=== PATIENT | female | born 1970 | race Caucasian/White ===

== ENCOUNTER 2018-04-01 16:36 | Emergency (ER) | payer MEDICAID, SELFPAY ==
[2018-04-01 16:52] VITALS: BP 130/89; PULSE 100; RESP 18; TEMP 36.6; O2SAT 98
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
[2018-04-01 17:47] LABS: Abs Immature Grans 0.01 k/cumm (0.0-0.09); Absolute Basophil Count 0.01 k/cumm (0.0-0.2); Absolute Lymphocyte Count 1.71 k/cumm (1.2-3.4); Absolute Monocyte Count 0.46 k/cumm (0.11-0.7); Absolute Neutrophil Count 4.03 k/cumm (1.2-6.7); Basophils % 0.2; HCT 38.1 % (36.0-46.0); HGB 13.2 g/dL (12.0-15.5); Immature Grans % 0.2; Lymphocytes % 27.5; Mean Corp. HGB Concentration 34.6 g/dL (32.0-36.0); Mean Corpuscular Hemoglobin 29.9 pg (27.0-33.0); Mean Corpuscular Volume 86.4 fL (80-95); Mean Platelet Volume 9.8 fL (8.0-11.0); Monocytes % 7.4; Neutrophils % 64.7; Platelet Count 314 x1000/uL (130-400); RBC 4.41 m/cumm (4.00-5.20); RBC Distribution Width 13.4 % (11.7-14.6); White Blood Cell Count 6.22 k/cumm (4.4-10.8)
[2018-04-01 18:08] LABS: ALT 19 U/L (12-78); AST 11 U/L (15-37); Alkaline Phosphatase 79 U/L (46-116); Anion Gap 9.9 mmol/L (3-11); BUN 6 mg/dL (7-18); Bilirubin, Total 0.3 mg/dL (0.2-1.0); CO2 25.1 mmol/L (21.0-32.0); CREATININE 0.43 mg/dL (0.55-1.02); Calcium 8.6 mg/dL (8.5-10.1); Chloride 106 mmol/L (98-107); Glucose 101 mg/dL (70-100); Potassium 3.3 mmol/L (3.5-5.1); Sodium 141 mmol/L (136-145); TSH 0.41 uIU/mL (0.358-3.74); Total Protein 7.2 g/dL (6.4-8.2)
[2018-04-01 18:10] LABS: ETHANOL BLOOD < 3.0 mg/dL (<3)
[2018-04-01 18:22] LABS: Salicylate 5.5 mg/dL (2.8-20.0)
[2018-04-01 18:25] LABS: Acetaminophen < 2 ug/mL (10-30)
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
[2018-04-01 19:20] LABS: Bilirubin Negative (Negative); Blood Moderate (Negative); Clarity Cloudy; Glucose Negative (Negative); Ketones Trace mg/dL (Negative); Leukocyte Esterase Trace (Negative); Nitrite Negative (Negative); Specific Gravity 1.015 (1.005-1.025); Urobilinogen 0.2 EU/dL (Up TO 0.2)
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
[2018-04-01 19:35] LABS: *AMPHETAMINES SCREEN URINE Negative (Negative); *BARBITURATES SCREEN URINE Negative (Negative); *BENZODIAZEPINES SCREEN URINE Negative (Negative); Cannabinoids THC Negative (Negative); Cocaine Screen,Urine Negative (Negative); METHADONE URINE SCREEN Negative (Negative); OPIATES URINE SCREEN Negative (Negative)
[2018-04-01 19:37] LABS: Tricyclic Antidepressants Negative (Negative)
[2018-04-01 19:43] LABS: WBC Negative HPF (0-5)
[2018-04-01 19:44] LABS: Bacteria Negative HPF (Negative); C & S Indicated? Yes; Casts Negative LPF (Negative); Crystals Negative HPF (Negative); Epithelial Cells Negative HPF (Negative); Mucus Negative (Negative); Other Cells Negative (Negative); RBC >50 (0-2)
--- NOTE | 2018-04-01 22:18 | PDOC.ERCMPRO ---
Care Management Progress Note S/O: Joanna presented to the ED following several days of increased delusions and has not been taking her medications as prescribed. Shared that she has been very stressed at home and would like to have her own place to live. Feels her parents are the cause of the increased stress right now. Feels safe at the hospital and is calm and cooperative. She is seeking voluntary admission to an Inpatient Psychiatric facility for stabilization and treatment. Currently interacting with her 1:1 CPSO and has paper and crayons. Denies SI/HI. She is still responding to delusions and hallucinations but will readily interact with staff members. Huddle: Jonny Thurston NP; Chrissy Salazar, [facility], Ginny Swan CM If deemed appropriate for inpatient psychiatric care, safety plan will be established with patient, and care team, to adhere to patient goals, identify restrictions based on behavioral status, address nutrition, and determine allowed personal belongings, tools for hygiene and personal care. As well plan will determine level of activity including ambulation, level of supervision, visitors, and determine privileges based on level of acuity, behaviors and level of engagement by patient. SAFETY PLAN: 1. Direct Observation 1:1 CPSO due to Hallucinations and potential for flight risk. 2. May have paper, crayons and TV if available 3. May have choice of foods with no restrictions.. 4. Follow [facility] Management of the Admitted Behavioral Health Patient policy. 5. Comfort bath system and may shower if accompanied by Nursing staff. Joanna has been accepted for admission to [facility] tomorrow morning. Jmaia Garay MD is the accepting physician and will be available for a Physician to Physician call at 8am. Safe transportation has been arranged with the Motion Picture Actor and they will be ready to leave at 9am. Please call [facility] Frontline Airfield Engineer Officer ([phone]) and Tele Grout Sewer Line Repairer Data Management Engineer ([phone]) for any change to the care plan.
[2018-04-01] MEDS: LORazepam 1 MG TAB PO (22:19)
--- NOTE | 2018-04-01 22:40 | CMPROGNOTE_ITS ---
Care Management Progress Note S/O: Joanna presented to the ED following several days of increased delusions and has not been taking her medications as prescribed. Shared that she has been very stressed at home and would like to have her own place to live. Feels her parents are the cause of the increased stress right now. Feels safe at the hospital and is calm and cooperative. She is seeking voluntary admission to an Inpatient Psychiatric facility for stabilization and treatment. Currently interacting with her 1:1 CPSO and has paper and crayons. Denies SI/HI. She is still responding to delusions and hallucinations but will readily interact with staff members. Huddle: Jonny Thurston NP; Chrissy Salazar, [facility], Ginny Swan CM If deemed appropriate for inpatient psychiatric care, safety plan will be established with patient, and care team, to adhere to patient goals, identify restrictions based on behavioral status, address nutrition, and determine allowed personal belongings, tools for hygiene and personal care. As well plan will determine level of activity including ambulation, level of supervision, visitors, and determine privileges based on level of acuity, behaviors and level of engagement by patient. SAFETY PLAN: 1. Direct Observation 1:1 CPSO due to Hallucinations and potential for flight risk. 2. May have paper, crayons and TV if available 3. May have choice of foods with no restrictions.. 4. Follow [facility] Management of the Admitted Behavioral Health Patient policy. 5. Comfort bath system and may shower if accompanied by Nursing staff. Joanna has been accepted for admission to [facility] tomorrow morning. Jamia Garay MD is the accepting physician and will be available for a Physician to Physician call at 8am. Safe transportation has been arranged with the [employer] Mill Supervisor and they will be ready to leave at 9am. Please call [facility] Frontline Service Inspector ([phone]) and Plate Glass Installer Automatic Spooler Operator ([phone]) for any change to the care plan.
--- NOTE | 2018-04-01 23:14 | ED.FU ---
Disposition Clinical Impression: Schizophrenia Disposition: STILL A PATIENT Condition: Stable Medical Decision Making - Lab Data Laboratory Tests 04/01/18 04/01/18 04/01/18 17:08 17:44 17:44 WBC 6.22 RBC 4.41 Hgb 13.2 Hct 38.1 MCV 86.4 MCH 29.9 MCHC 34.6 RDW 13.4 Plt Count 314 MPV 9.8 Immature Gran % 0.2 Neutrophils % 64.7 Lymphocytes % 27.5 Monocytes % 7.4 Eosinophils % 0.0 Basophils % 0.2 Absolute Neutrophils 4.03 Absolute Lymphocytes 1.71 Absolute Monocytes 0.46 Absolute Eosinophils 0.00 Absolute Basophils 0.01 Sodium 141 Potassium 3.3 L Chloride 106 Carbon Dioxide 25.1 Anion Gap 9.9 BUN 6 L Creatinine 0.43 L Estimated GFR/1.73 m2 >= 60.00 Glucose 101 H Calcium 8.6 Total Bilirubin 0.3 AST 11 L ALT 19 Alkaline Phosphatase 79 Total Protein 7.2 Albumin 4.0 TSH 0.41 Urine Color Urine Clarity Urine pH Ur Specific [place] Urine Protein Urine Ketones Urine Blood Urine Nitrite Urine Bilirubin Urine Urobilinogen Ur Leukocyte Esterase Urine RBC Urine WBC Ur Epithelial Cells Urine Crystals Urine Bacteria Urine Casts Urine Mucus Urine Other Ur Culture Indicated? Urine Glucose Salicylates 5.5 Urine Opiates Screen Urine Methadone Screen Acetaminophen < 2 L Ur Barbiturates Screen Ur Tricyclics Screen Ur Amphetamines Screen U Benzodiazepines Scrn Urine Cocaine Screen Ur THC Screen Ethyl Alcohol < 3.0 04/01/18 04/01/18 19:15 19:15 WBC RBC Hgb Hct MCV MCH MCHC RDW Plt Count MPV Immature Gran % Neutrophils % Lymphocytes % Monocytes % Eosinophils % Basophils % Absolute Neutrophils Absolute Lymphocytes Absolute Monocytes Absolute Eosinophils Absolute Basophils Sodium Potassium Chloride Carbon Dioxide Anion Gap BUN Creatinine Estimated GFR/1.73 m2 Glucose Calcium Total Bilirubin AST ALT Alkaline Phosphatase Total Protein Albumin TSH Urine Color Yellow Urine Clarity Cloudy Urine pH 6.0 Ur Specific [place] 1.015 Urine Protein Trace H Urine Ketones Trace H Urine Blood Moderate H Urine Nitrite Negative Urine Bilirubin Negative Urine Urobilinogen 0.2 Ur Leukocyte Esterase Trace H Urine RBC >50 H Urine WBC Negative Ur Epithelial Cells Negative Urine Crystals Negative Urine Bacteria Negative Urine Casts Negative Urine Mucus Negative Urine Other Negative Ur Culture Indicated? Yes Urine Glucose Negative Salicylates Urine Opiates Screen Negative Urine Methadone Screen Negative Acetaminophen Ur Barbiturates Screen Negative Ur Tricyclics Screen Negative Ur Amphetamines Screen Negative U Benzodiazepines Scrn Negative Urine Cocaine Screen Negative Ur THC Screen Negative Ethyl Alcohol Care Signed Out By:: alonso leary - Vital Signs Recent Vitals - 8H: Vital Signs - 8 hr 04/01/18 16:52 Temperature 97.9 F Pulse 100 H Respiratory 18 Rate Blood Pressure 130/89 Pulse Oximetry 98 - Continuation of Care Continuation of Care Plan: pt has been calm and cooperative, does still have hallucinations (states keita are falling in and she is holding them up), denies si/hi. She is waiting for transfer to [place] tomorrow for further psychiatric care, which at this time is tentatively scheduled at 9am. Will continue to monitor tonight
--- NOTE | 2018-04-02 03:31 | NUR.NOTE ---
Nursing Note: 0200, patient talking and eating, ambulating to the bathroom with observer without difficulty, no complaints offered, patient observer remains with patient.
--- NOTE | 2018-04-02 03:58 | NUR.NOTE ---
Nursing Note: patient awake, conversant with no complaints, patient observer remains with the patient.
--- NOTE | 2018-04-02 09:34 | ED.FU ---
Disposition Clinical Impression: Schizophrenia Disposition: STILL A PATIENT Condition: Stable Medical Decision Making - Lab Data Laboratory Tests 04/01/18 04/01/18 04/01/18 17:08 17:44 17:44 WBC 6.22 RBC 4.41 Hgb 13.2 Hct 38.1 MCV 86.4 MCH 29.9 MCHC 34.6 RDW 13.4 Plt Count 314 MPV 9.8 Immature Gran % 0.2 Neutrophils % 64.7 Lymphocytes % 27.5 Monocytes % 7.4 Eosinophils % 0.0 Basophils % 0.2 Absolute Neutrophils 4.03 Absolute Lymphocytes 1.71 Absolute Monocytes 0.46 Absolute Eosinophils 0.00 Absolute Basophils 0.01 Sodium 141 Potassium 3.3 L Chloride 106 Carbon Dioxide 25.1 Anion Gap 9.9 BUN 6 L Creatinine 0.43 L Estimated GFR/1.73 m2 >= 60.00 Glucose 101 H Calcium 8.6 Total Bilirubin 0.3 AST 11 L ALT 19 Alkaline Phosphatase 79 Total Protein 7.2 Albumin 4.0 TSH 0.41 Urine Color Urine Clarity Urine pH Ur Specific [place] Urine Protein Urine Ketones Urine Blood Urine Nitrite Urine Bilirubin Urine Urobilinogen Ur Leukocyte Esterase Urine RBC Urine WBC Ur Epithelial Cells Urine Crystals Urine Bacteria Urine Casts Urine Mucus Urine Other Ur Culture Indicated? Urine Glucose Salicylates 5.5 Urine Opiates Screen Urine Methadone Screen Acetaminophen < 2 L Ur Barbiturates Screen Ur Tricyclics Screen Ur Amphetamines Screen U Benzodiazepines Scrn Urine Cocaine Screen Ur THC Screen Ethyl Alcohol < 3.0 04/01/18 04/01/18 19:15 19:15 WBC RBC Hgb Hct MCV MCH MCHC RDW Plt Count MPV Immature Gran % Neutrophils % Lymphocytes % Monocytes % Eosinophils % Basophils % Absolute Neutrophils Absolute Lymphocytes Absolute Monocytes Absolute Eosinophils Absolute Basophils Sodium Potassium Chloride Carbon Dioxide Anion Gap BUN Creatinine Estimated GFR/1.73 m2 Glucose Calcium Total Bilirubin AST ALT Alkaline Phosphatase Total Protein Albumin TSH Urine Color Yellow Urine Clarity Cloudy Urine pH 6.0 Ur Specific [place] 1.015 Urine Protein Trace H Urine Ketones Trace H Urine Blood Moderate H Urine Nitrite Negative Urine Bilirubin Negative Urine Urobilinogen 0.2 Ur Leukocyte Esterase Trace H Urine RBC >50 H Urine WBC Negative Ur Epithelial Cells Negative Urine Crystals Negative Urine Bacteria Negative Urine Casts Negative Urine Mucus Negative Urine Other Negative Ur Culture Indicated? Yes Urine Glucose Negative Salicylates Urine Opiates Screen Negative Urine Methadone Screen Negative Acetaminophen Ur Barbiturates Screen Negative Ur Tricyclics Screen Negative Ur Amphetamines Screen Negative U Benzodiazepines Scrn Negative Urine Cocaine Screen Negative Ur THC Screen Negative Ethyl Alcohol Care Signed Out By:: Umer - Continuation of Care Continuation of Care Plan: Colleague Dr. Owusu. 1.5 hours post signout I was contacted for the doc to doc transition to [place]. I discussed the case with Dr. Garay including the patient's current clinical disposition, events of the evening and previous day, medications administered, lab results. All questions were answered. Patient will be transferred. Currently the patient is stable, demonstrates no signs of hemodynamic instability, is calm and reserved. And agrees with the assessment and plan. I have extensively reviewed the treatment plan with the patient. I have addressed all patient concerns at this time. I have also discussed the plan with the admitting physician and they agree with the current assessment and plan and have agreed to assume responsibility for the patient. All parties demonstrate verbal understanding and agreement with our assessment and plan at this time.
--- NOTE | 2018-04-03 07:23 | NUR.NOTE ---
Nursing Note: patient transferred to [facility], urine culture faxed to [phone].
== END 2018-04-02 09:40 | disposition still patient (30) ==
PROVIDERS: Nurse Practitioner Family; Emergency Provider Student in an Organized Health Care Education/Training Program; PCP Nurse Practitioner Family
DX: F20.9 Schizophrenia, unspecified (principal)
CPT/HCPCS: 80053; 80307; 99285; 80320; 80329; 81003; 81015; 84443; 85025; 87086; 99284

== ENCOUNTER 2018-05-04 10:09 | Outpatient (CLI) | payer MEDICAID, SELFPAY ==
[2018-05-04 10:47] LABS: Abs Immature Grans 0.01 k/cumm (0.0-0.09); Absolute Basophil Count 0.02 k/cumm (0.0-0.2); Absolute Lymphocyte Count 1.75 k/cumm (1.2-3.4); Absolute Monocyte Count 0.41 k/cumm (0.11-0.7); Absolute Neutrophil Count 3.52 k/cumm (1.2-6.7); Basophils % 0.4; HCT 39.8 % (36.0-46.0); HGB 13.2 g/dL (12.0-15.5); Immature Grans % 0.2; Lymphocytes % 30.6; Mean Corp. HGB Concentration 33.2 g/dL (32.0-36.0); Mean Corpuscular Hemoglobin 29.6 pg (27.0-33.0); Mean Corpuscular Volume 89.2 fL (80-95); Mean Platelet Volume 9.9 fL (8.0-11.0); Monocytes % 7.2; Neutrophils % 61.6; Platelet Count 335 x1000/uL (130-400); RBC 4.46 m/cumm (4.00-5.20); RBC Distribution Width 13.9 % (11.7-14.6); White Blood Cell Count 5.71 k/cumm (4.4-10.8)
== END 2018-05-04 10:29 ==
PROVIDERS: PCP Nurse Practitioner Family; Visit Provider Nurse Practitioner Psychiatric/Mental Health
DX: F20.9 Schizophrenia, unspecified (principal); Z79.899 Other long term (current) drug therapy
CPT/HCPCS: 36415; 85025

== ENCOUNTER 2018-05-27 12:54 | Outpatient (CLI) | payer MEDICAID, SELFPAY ==
[2018-05-27 13:27] LABS: Abs Immature Grans 0.02 k/cumm (0.0-0.09); Absolute Basophil Count 0.03 k/cumm (0.0-0.2); Absolute Lymphocyte Count 2.09 k/cumm (1.2-3.4); Absolute Monocyte Count 0.66 k/cumm (0.11-0.7); Absolute Neutrophil Count 8.32 k/cumm (1.2-6.7); Basophils % 0.3; HCT 37.9 % (36.0-46.0); HGB 12.7 g/dL (12.0-15.5); Immature Grans % 0.2; Lymphocytes % 18.8; Mean Corp. HGB Concentration 33.5 g/dL (32.0-36.0); Mean Corpuscular Hemoglobin 29.9 pg (27.0-33.0); Mean Corpuscular Volume 89.2 fL (80-95); Mean Platelet Volume 9.5 fL (8.0-11.0); Monocytes % 5.9; Neutrophils % 74.8; Platelet Count 407 x1000/uL (130-400); RBC 4.25 m/cumm (4.00-5.20); RBC Distribution Width 13.7 % (11.7-14.6); White Blood Cell Count 11.12 k/cumm (4.4-10.8)
[2018-05-27 13:37] LABS: Ammonia 18 umol/L (11-32)
[2018-05-27 13:37] LABS: Bilirubin Negative (Negative); Blood Large (Negative); Clarity Sl Cloudy; Glucose Negative (Negative); Ketones 40 mg/dL (Negative); Leukocyte Esterase Negative (Negative); Nitrite Negative (Negative); Urobilinogen 0.2 EU/dL (Up TO 0.2)
[2018-05-27 13:49] LABS: Epithelial Cells Many HPF (Negative)
[2018-05-27 13:50] LABS: Bacteria Moderate HPF (Negative)
[2018-05-27 13:51] LABS: C & S Indicated? No/Sq. Contamination; Crystals Negative HPF (Negative); Mucus Moderate (Negative)
[2018-05-27 14:02] LABS: *AMPHETAMINES SCREEN URINE Negative (Negative); *BARBITURATES SCREEN URINE Negative (Negative); *BENZODIAZEPINES SCREEN URINE Negative (Negative); Cannabinoids THC Negative (Negative); Cocaine Screen,Urine Negative (Negative); METHADONE URINE SCREEN Negative (Negative); OPIATES URINE SCREEN Negative (Negative)
[2018-05-27 14:05] LABS: Tricyclic Antidepressants Negative (Negative)
[2018-05-27 14:51] LABS: ALT 34 U/L (12-78); AST 16 U/L (15-37); Albumin 4.2 g/dL (3.4-5.0); Alkaline Phosphatase 100 U/L (46-116); Anion Gap 14.4 mmol/L (3-11); BUN 9 mg/dL (7-18); Bilirubin, Total 0.5 mg/dL (0.2-1.0); CO2 20.6 mmol/L (21.0-32.0); CREATININE 0.54 mg/dL (0.55-1.02); Chloride 105 mmol/L (98-107); Glucose 113 mg/dL (70-100); Potassium 3.7 mmol/L (3.5-5.1); Sodium 140 mmol/L (136-145); TSH 0.58 uIU/mL (0.358-3.74)
== END 2018-05-27 13:14 ==
PROVIDERS: PCP Nurse Practitioner Family; Visit Provider Nurse Practitioner Psychiatric/Mental Health
DX: F20.9 Schizophrenia, unspecified (principal); Z79.899 Other long term (current) drug therapy
CPT/HCPCS: 36415; 80053; 80307; 81003; 81015; 82140; 84443; 85025

== ENCOUNTER 2018-05-27 13:42 | Emergency (ER) | payer MEDICAID, SELFPAY ==
[2018-05-27 14:00] VITALS: BP 124/79; PULSE 95; RESP 14; TEMP 36.8; O2SAT 98
--- NOTE | 2018-05-27 15:55 | W.ED.GENAD ---
Discharge Plan Disposition Patient Disposition: OTHER Condition: Stable Discharge Details Chief Complaint: PsychEval Clinical Impression: Schizophrenia Primary Care Provider: Celeste Yancey ED Provider: Yosvany Thurston Home Meds and New Rx's Prescriptions: Continue clozapine [Clozaril] 100 MG tablet 100 mg PO DAILY RF: 0 acetaminophen [Tylenol Extra Strength] 500 MG tablet 500 mg PO PRN PRNRF: 0 No Action docusate sodium [Colace] 100 MG capsule 200 mg PO BID PRNRF: 0 LACTULOSE 10GM/15/ML 30 ml PO TID/PRN RF: 0 clozapine [Clozaril] 100 MG tablet 400 mg PO QPM RF: 0 bisacodyl 5 MG tablet,delayed release (DR/EC) 1 tab PO PRN PRNRF: 0 lorazepam 1 MG tablet 1 mg PO TID PRN PRNRF: 0 Discharge Instructions Instructions: Stress (ED) Additional Instructions: Feel free to return to the emergency department for any new or worsening symptoms otherwise follow through with mental health plan of care. Referrals: Celeste Yancey [Primary Care Provider] - (As needed for reassessment) Discharge Data Discharge Date/Time-TO BE ENTERED AT DEPARTURE: 05/27/18 16:11 Medical Decision Making <del>P</del>atient presenting to the emergency department for chief complaint of medical clearance before going to the care bed. Caregiver that is with patient states that 2 days ago patient had a family visit and then yesterday seemed to decline and started having more confrontations with caregiver that she typically stays with. Patient's only complaint is that she does not eat as much due to her smoking but otherwise denies any homicidal or suicidal. Physical exam is unremarkable. I did call med manager [employer] nurse practitioner Lisandra at [facility] whom states that patient condition was presented to her and she ordered some labs on the patient but was not clearly sure why she was presenting to the emergency department. Given the patient denies any other medical complaints is not homicidal or suicidal I did review labs with nurse practitioner radha order them whom stated after review of labs she gave medical clearance for patient to go to the care bed. Given that this seems like a decline of patient's typical schizophrenic episode I see no reason to keep patient in the emergency department any longer and that she may be discharged to follow through with mental health plan. After discussion of diagnosis and plan of care patient is no further needs, questions, or concerns and states clear understanding to return to the emergency department for any worsening symptoms. HPI General Mode of arrival: ambulatory. Date/Time Provider Initiated Documentation: 05/27/18 14:07. Limitations to Documentation: no limitations. Information obtained by: patient, RN/MD, RN notes reviewed and old records reviewed. History of Present Illness 47 year old F presents to the emergency department with the chief complaint of Medical clearance, described as moderate and similar to prior episodes, Quality is described as other (denies pain), Patient started experiencing this day(s) (1) and it has been constant. No relieving factors improve symptom(s), Other factors that worsen symptoms (family visit) . Patient notes no other symptoms.. Patient did receive the following treatments prior to arrival, none Related Data Home Medications Medication Instructions Recorded Confirmed Lactulose 10gm/15/Ml 30 ml PO TID/PRN 11/23/12 04/02/18 clozapine [Clozaril] 100 mg PO DAILY tab-cap 11/23/12 04/02/18 docusate sodium [Colace] 200 mg PO BID PRN tab-cap 11/23/12 05/27/18 acetaminophen [Tylenol Extra 500 mg PO PRN PRN 09/08/14 04/02/18 Strength] bisacodyl 1 tab PO PRN PRN 09/08/14 05/27/18 clozapine [Clozaril] 400 mg PO QPM 09/08/14 04/02/18 lorazepam 1 mg PO TID PRN PRN 11/14/15 04/02/18 Allergies Allergy/AdvReac Type Severity Reaction Status Date / Time Penicillins AdvReac Unknown unknown Unverified 05/27/18 14:09 General Stated Complaint: PsychEval GARRY: 2 Review of Systems Constitutional Denies body ache(s), Denies chills, Denies fever(s), Denies weight gain and Denies weight loss Eyes Denies change in vision ENT Denies sore throat and Denies throat swelling Cardiovascular Denies chest pain and Denies dyspnea Respiratory Denies dyspnea Gastrointestinal Denies abdominal pain, Denies diarrhea, Denies nausea and Denies vomiting Genitourinary Denies dysuria Psychiatric Reports as per HPI, Reports abnormal sleep pattern, Reports anxiety and Reports mood swings Endocrine Denies cold intolerance and Denies heat intolerance Hematologic/Lymphatic Denies easy bleeding and Denies easy bruising Allergic/Immunologic Denies throat swelling [facility] Medical History Chronic paranoid schizophrenia Social History Smoking/Tobacco Use Status: Current every day Exam Const General: cooperative Orientation: alert, awake and oriented x3 Limitations: mental status not altered HENMT Head: normal to inspection, normocephalic and atraumatic Ears: hearing grossly normal bilaterally Mouth: moist mucous membranes Eyes General: appearance normal, both eyes and all related structures Pupils: PERRL EOM: EOM intact bilaterally Neck Thyroid: thyroid normal Resp Effort & Inspection: normal respiratory effort, able to speak in complete sentences and no respiratory distress Auscultation: clear to auscultation bilaterally Cardio Rate: regular rate and not tachycardic Rhythm: regular rhythm Heart Sounds: S1 normal, S2 normal, no click, no gallops, no murmurs and no rubs Neuro General: alert, awake, oriented x3, gait normal, moves all extremities and no focal motor deficits Cognition: normal cognition Speech: speech normal Psych Speech and Movement: speech and movement normal and speech clear Affect: indifferent Attitude: cooperative Thought Process: flight of ideas and illogical Thought Content: normal, no homicidality and suicidality Course Vital Signs Temperature 36.8 C 05/27/18 14:00 Pulse 95 H 05/27/18 14:00 Respiratory Rate 14 05/27/18 14:00 Blood Pressure 124/79 05/27/18 14:00 Pulse Oximetry 98 05/27/18 14:00 Temperature 36.8 C 05/27/18 14:00 Temperature Source Skin 05/27/18 14:00 Pulse 95 H 05/27/18 14:00 Respiratory Rate 14 05/27/18 14:00 Respiratory Effort 05/27/18 14:12 Blood Pressure 124/79 05/27/18 14:00 Blood Pressure Position Sitting 05/27/18 14:00 Pulse Oximetry 98 05/27/18 14:00 Oxygen Delivery Method Room Air 05/27/18 14:00 Oxygen Flow Rate 0 05/27/18 14:00 Pain Level 0 05/27/18 14:00
--- NOTE | 2018-05-27 15:59 | ED.GENADUL_ITS ---
Discharge Plan Disposition Patient Disposition: OTHER Condition: Stable Discharge Details Chief Complaint: PsychEval Clinical Impression: Schizophrenia Primary Care Provider: Celeste Yancey ED Provider: Yosvany Thurston Home Meds and New Rx's Prescriptions: Continue clozapine [Clozaril] 100 MG tablet 100 mg PO DAILY RF: 0 acetaminophen [Tylenol Extra Strength] 500 MG tablet 500 mg PO PRN PRNRF: 0 No Action docusate sodium [Colace] 100 MG capsule 200 mg PO BID PRNRF: 0 LACTULOSE 10GM/15/ML 30 ml PO TID/PRN RF: 0 clozapine [Clozaril] 100 MG tablet 400 mg PO QPM RF: 0 bisacodyl 5 MG tablet,delayed release (DR/EC) 1 tab PO PRN PRNRF: 0 lorazepam 1 MG tablet 1 mg PO TID PRN PRNRF: 0 Discharge Instructions Instructions: Stress (ED) Additional Instructions: Feel free to return to the emergency department for any new or worsening symptoms otherwise follow through with mental health plan of care. Referrals: Celeste Yancey [Primary Care Provider] - (As needed for reassessment) Discharge Data Discharge Date/Time-TO BE ENTERED AT DEPARTURE: 05/27/18 16:11 Medical Decision Making Patient presenting to the emergency department for chief complaint of medical clearance before going to the care bed. Caregiver that is with patient states that 2 days ago patient had a family visit and then yesterday seemed to decline and started having more confrontations with caregiver that she typically stays with. Patient's only complaint is that she does not eat as much due to her smoking but otherwise denies any homicidal or suicidal. Physical exam is unremarkable. I did call med it systems manager nurse practitioner Lisandra at [facility] whom states that patient condition was presented to her and she ordered some labs on the patient but was not clearly sure why she was presenting to the emergency department. Given the patient denies any other medical complaints is not homicidal or suicidal I did review labs with nurse practitioner radha order them whom stated after review of labs she gave medical clearance for patient to go to the care bed. Given that this seems like a decline of patient's typical schizophrenic episode I see no reason to keep patient in the emergency department any longer and that she may be discharged to follow through with mental health plan. After discussion of diagnosis and plan of care patient is no further needs, questions, or concerns and states clear understanding to return to the emergency department for any worsening symptoms. HPI General Mode of arrival: ambulatory . Date/Time Provider Initiated Documentation: 05/27/18 14:07 . Limitations to Documentation: no limitations . Information obtained by: patient, RN/MD, RN notes reviewed and old records reviewed . History of Present Illness 47 year old F presents to the emergency department with the chief complaint of Medical clearance, described as moderate and similar to prior episodes, Quality is described as other (denies pain), Patient started experiencing this day(s) (1) and it has been constant. No relieving factors improve symptom(s), Other factors that worsen symptoms (family visit) . Patient notes no other symptoms.. Patient did receive the following treatments prior to arrival, none Related Data Home Medications Medication Instructions Recorded Confirmed Lactulose 10gm/15/Ml 30 ml PO TID/PRN 11/23/12 04/02/18 clozapine [Clozaril] 100 mg PO DAILY tab-cap 11/23/12 04/02/18 docusate sodium [Colace] 200 mg PO BID PRN tab-cap 11/23/12 05/27/18 acetaminophen [Tylenol Extra 500 mg PO PRN PRN 09/08/14 04/02/18 Strength] bisacodyl 1 tab PO PRN PRN 09/08/14 05/27/18 clozapine [Clozaril] 400 mg PO QPM 09/08/14 04/02/18 lorazepam 1 mg PO TID PRN PRN 11/14/15 04/02/18 Allergies Allergy/AdvReac Type Severity Reaction Status Date / Time Penicillins AdvReac Unknown unknown Unverified 05/27/18 14:09 General Stated Complaint: PsychEval GARRY: 2 Review of Systems Constitutional Denies body ache(s), Denies chills, Denies fever(s), Denies weight gain and Denies weight loss Eyes Denies change in vision ENT Denies sore throat and Denies throat swelling Cardiovascular Denies chest pain and Denies dyspnea Respiratory Denies dyspnea Gastrointestinal Denies abdominal pain, Denies diarrhea, Denies nausea and Denies vomiting Genitourinary Denies dysuria Psychiatric Reports as per HPI, Reports abnormal sleep pattern, Reports anxiety and Reports mood swings Endocrine Denies cold intolerance and Denies heat intolerance Hematologic/Lymphatic Denies easy bleeding and Denies easy bruising Allergic/Immunologic Denies throat swelling [facility] Medical History Chronic paranoid schizophrenia Social History Smoking/Tobacco Use Status: Current every day Exam Const General: cooperative Orientation: alert, awake and oriented x3 Limitations: mental status not altered HENCA Head: normal to inspection, normocephalic and atraumatic Ears: hearing grossly normal bilaterally Mouth: moist mucous membranes Eyes General: appearance normal, both eyes and all related structures Pupils: PERRL EOM: EOM intact bilaterally Neck Thyroid: thyroid normal Resp Effort & Inspection: normal respiratory effort, able to speak in complete sentences and no respiratory distress Auscultation: clear to auscultation bilaterally Cardio Rate: regular rate and not tachycardic Rhythm: regular rhythm Heart Sounds: S1 normal, S2 normal, no click, no gallops, no murmurs and no rubs Neuro General: alert, awake, oriented x3, gait normal, moves all extremities and no focal motor deficits Cognition: normal cognition Speech: speech normal Psych Speech and Movement: speech and movement normal and speech clear Affect: indifferent Attitude: cooperative Thought Process: flight of ideas and illogical Thought Content: normal, no homicidality and suicidality Course Vital Signs Temperature 36.8 C 05/27/18 14:00 Pulse 95 H 05/27/18 14:00 Respiratory Rate 14 05/27/18 14:00 Blood Pressure 124/79 05/27/18 14:00 Pulse Oximetry 98 05/27/18 14:00 Temperature 36.8 C 05/27/18 14:00 Temperature Source Skin 05/27/18 14:00 Pulse 95 H 05/27/18 14:00 Respiratory Rate 14 05/27/18 14:00 Respiratory Effort 05/27/18 14:12 Blood Pressure 124/79 05/27/18 14:00 Blood Pressure Position Sitting 05/27/18 14:00 Pulse Oximetry 98 05/27/18 14:00 Oxygen Delivery Method Room Air 05/27/18 14:00 Oxygen Flow Rate 0 05/27/18 14:00 Pain Level 0 05/27/18 14:00
[2018-05-27 16:10] VITALS: BP 132/82; PULSE 98; RESP 14; TEMP 36.6; O2SAT 96
== END 2018-05-27 16:11 | disposition other institution (70) ==
PROVIDERS: Emergency Provider Nurse Practitioner Family; PCP Nurse Practitioner Family
DX: F20.0 Paranoid schizophrenia (principal); Z71.1 Person with feared health complaint in whom no diagnosis is made
CPT/HCPCS: 99281

== ENCOUNTER 2018-07-04 11:44 | Outpatient (CLI) | payer MEDICAID, SELFPAY ==
[2018-07-04 12:37] LABS: Abs Immature Grans 0.01 k/cumm (0.0-0.09); Absolute Basophil Count 0.03 k/cumm (0.0-0.2); Absolute Eosinophil Count 0.01 k/cumm (0.0-0.7); Absolute Lymphocyte Count 2.07 k/cumm (1.2-3.4); Absolute Monocyte Count 0.42 k/cumm (0.11-0.7); Basophils % 0.4; Eosinophils % 0.1; HCT 38.9 % (36.0-46.0); Immature Grans % 0.1; Lymphocytes % 30.7; Mean Corp. HGB Concentration 33.4 g/dL (32.0-36.0); Mean Corpuscular Volume 89.6 fL (80-95); Mean Platelet Volume 9.8 fL (8.0-11.0); Monocytes % 6.2; Neutrophils % 62.5; Platelet Count 368 x1000/uL (130-400); RBC 4.34 m/cumm (4.00-5.20); RBC Distribution Width 13.2 % (11.7-14.6); White Blood Cell Count 6.74 k/cumm (4.4-10.8)
== END 2018-07-04 12:04 ==
PROVIDERS: PCP Nurse Practitioner Family; Visit Provider Nurse Practitioner Psychiatric/Mental Health
DX: F20.9 Schizophrenia, unspecified (principal); Z79.899 Other long term (current) drug therapy
CPT/HCPCS: 36415; 85025

== ENCOUNTER 2018-07-25 09:37 | Outpatient (CLI) | payer MEDICAID, SELFPAY ==
[2018-07-25 09:54] LABS: Abs Immature Grans 0.01 k/cumm (0.0-0.09); Absolute Basophil Count 0.02 k/cumm (0.0-0.2); Absolute Eosinophil Count 0.01 k/cumm (0.0-0.7); Absolute Lymphocyte Count 1.94 k/cumm (1.2-3.4); Absolute Monocyte Count 0.34 k/cumm (0.11-0.7); Absolute Neutrophil Count 3.12 k/cumm (1.2-6.7); Basophils % 0.4; Eosinophils % 0.2; HCT 38.2 % (36.0-46.0); HGB 13.1 g/dL (12.0-15.5); Immature Grans % 0.2; Lymphocytes % 35.7; Mean Corp. HGB Concentration 34.3 g/dL (32.0-36.0); Mean Corpuscular Hemoglobin 30.4 pg (27.0-33.0); Mean Corpuscular Volume 88.6 fL (80-95); Mean Platelet Volume 9.3 fL (8.0-11.0); Monocytes % 6.3; Neutrophils % 57.2; Platelet Count 297 x1000/uL (130-400); RBC 4.31 m/cumm (4.00-5.20); RBC Distribution Width 13.1 % (11.7-14.6); White Blood Cell Count 5.44 k/cumm (4.4-10.8)
== END 2018-07-25 09:57 ==
PROVIDERS: PCP Nurse Practitioner Family; Visit Provider Nurse Practitioner Psychiatric/Mental Health
DX: F20.9 Schizophrenia, unspecified (principal); Z79.899 Other long term (current) drug therapy
CPT/HCPCS: 36415; 85025

== ENCOUNTER 2018-08-13 14:32 | Emergency (ER) | payer MEDICAID, SELFPAY ==
[2018-08-13 14:45] VITALS: BP 128/93; PULSE 108; RESP 18; TEMP 36.2; O2SAT 96
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
[2018-08-13 15:42] LABS: *AMPHETAMINES SCREEN URINE Negative (Negative); *BARBITURATES SCREEN URINE Negative (Negative); *BENZODIAZEPINES SCREEN URINE Negative (Negative); Cannabinoids THC Negative (Negative); Cocaine Screen,Urine Negative (Negative); METHADONE URINE SCREEN Negative (Negative); OPIATES URINE SCREEN Negative (Negative)
[2018-08-13 15:52] LABS: Tricyclic Antidepressants Negative (Negative)
[2018-08-13 16:22] LABS: Bilirubin Negative (Negative); Blood Moderate (Negative); Clarity Clear; Glucose Negative (Negative); Ketones 15 mg/dL (Negative); Leukocyte Esterase Trace (Negative); Nitrite Negative (Negative); Urobilinogen 0.2 EU/dL (Up TO 0.2); pH 5.5 (5-8)
[2018-08-13 16:32] LABS: Bacteria Few HPF (Negative); C & S Indicated? No/Sq. Contamination; Casts Negative LPF (Negative); Crystals Negative HPF (Negative); Epithelial Cells Many HPF (Negative); Mucus Negative (Negative); Other Cells Mod Transitional (Negative); RBC Negative (0-2)
[2018-08-13 17:45] VITALS: BP 150/90; PULSE 115; RESP 16; TEMP 36.2; O2SAT 95
== END 2018-08-13 17:45 | disposition home or self-care (01) ==
PROVIDERS: Emergency Provider Student in an Organized Health Care Education/Training Program; PCP Nurse Practitioner Family
DX: F20.0 Paranoid schizophrenia (principal)
CPT/HCPCS: 80307; 99284; 81003; 81015

== ENCOUNTER 2018-08-29 12:13 | Outpatient (CLI) | payer MEDICAID, SELFPAY ==
[2018-08-29 12:59] LABS: Absolute Basophil Count 0.02 k/cumm (0.0-0.2); Absolute Monocyte Count 0.34 k/cumm (0.11-0.7); Absolute Neutrophil Count 3.64 k/cumm (1.2-6.7); Basophils % 0.4; HCT 40.3 % (36.0-46.0); HGB 13.2 g/dL (12.0-15.5); Lymphocytes % 29.8; Mean Corp. HGB Concentration 32.8 g/dL (32.0-36.0); Mean Corpuscular Hemoglobin 29.5 pg (27.0-33.0); Mean Corpuscular Volume 90.2 fL (80-95); Neutrophils % 63.8; Platelet Count 327 x1000/uL (130-400); RBC 4.47 m/cumm (4.00-5.20); RBC Distribution Width 13.2 % (11.7-14.6)
== END 2018-08-29 12:33 ==
PROVIDERS: PCP Nurse Practitioner Family; Visit Provider Nurse Practitioner Psychiatric/Mental Health
DX: F20.9 Schizophrenia, unspecified (principal); Z79.899 Other long term (current) drug therapy
CPT/HCPCS: 36415; 85025

== ENCOUNTER 2018-09-15 10:05 | Outpatient (CLI) | payer MEDICAID, SELFPAY ==
[2018-09-15 10:44] LABS: Bilirubin Small (Negative); Blood Moderate (Negative); Clarity Clear; Glucose Negative (Negative); Ketones Trace mg/dL (Negative); Leukocyte Esterase Negative (Negative); Nitrite Negative (Negative); Specific Gravity >= 1.030 (1.005-1.025); pH 5.5 (5-8)
[2018-09-15 10:46] LABS: Abs Immature Grans 0.01 k/cumm (0.0-0.09); Absolute Basophil Count 0.01 k/cumm (0.0-0.2); Absolute Lymphocyte Count 0.96 k/cumm (1.2-3.4); Absolute Monocyte Count 0.45 k/cumm (0.11-0.7); Absolute Neutrophil Count 3.47 k/cumm (1.2-6.7); Basophils % 0.2; HCT 39.3 % (36.0-46.0); HGB 13.1 g/dL (12.0-15.5); Immature Grans % 0.2; Lymphocytes % 19.6; Mean Corp. HGB Concentration 33.3 g/dL (32.0-36.0); Mean Corpuscular Hemoglobin 29.4 pg (27.0-33.0); Mean Corpuscular Volume 88.3 fL (80-95); Mean Platelet Volume 9.9 fL (8.0-11.0); Monocytes % 9.2; Neutrophils % 70.8; Platelet Count 255 x1000/uL (130-400); RBC 4.45 m/cumm (4.00-5.20); RBC Distribution Width 14.3 % (11.7-14.6)
[2018-09-15 11:06] LABS: Bacteria Negative HPF (Negative); C & S Indicated? No; Casts Negative LPF (Negative); Crystals Moderate Amorphous HPF (Negative); Epithelial Cells Many HPF (Negative); Mucus Heavy (Negative); WBC Negative HPF (0-5)
[2018-09-15 11:34] LABS: ALT 478 U/L (12-78); AST 79 U/L (15-37); Albumin 3.4 g/dL (3.4-5.0); Alkaline Phosphatase 242 U/L (46-116); Anion Gap 9.5 mmol/L (3-11); BUN 11 mg/dL (7-18); Bilirubin, Total 0.3 mg/dL (0.2-1.0); CO2 28.5 mmol/L (21.0-32.0); CREATININE 0.58 mg/dL (0.55-1.02); Calcium 8.8 mg/dL (8.5-10.1); Chloride 102 mmol/L (98-107); Glucose 116 mg/dL (70-100); Potassium 3.7 mmol/L (3.5-5.1); Sodium 140 mmol/L (136-145); Total Protein 6.7 g/dL (6.4-8.2)
[2018-09-20 03:48] LABS: Clozapine 1150 ng/mL (>350); Clozapine+Norclozapine Total 1867 ng/mL (>450); Norclozapine 717 ng/mL
== END 2018-09-15 10:25 ==
PROVIDERS: PCP Nurse Practitioner Family; Visit Provider Nurse Practitioner Psychiatric/Mental Health
DX: F20.9 Schizophrenia, unspecified (principal); Z79.899 Other long term (current) drug therapy; Z51.81 Encounter for therapeutic drug level monitoring
CPT/HCPCS: 36415; 80053; 80159; 81003; 81015; 85025

== ENCOUNTER 2018-09-22 10:51 | Outpatient (REF) | payer MEDICAID, SELFPAY ==
[2018-09-22 13:10] LABS: ALT 247 U/L (12-78); AST 87 U/L (15-37); Albumin 3.7 g/dL (3.4-5.0); Alkaline Phosphatase 295 U/L (46-116); Bilirubin, Direct 0.11 mg/dL (0.00-0.20); Bilirubin, Total 0.3 mg/dL (0.2-1.0); Total Protein 7.1 g/dL (6.4-8.2)
[2018-09-22 13:12] LABS: Bilirubin Negative (Negative); Blood Small (Negative); Clarity Clear; Glucose Negative (Negative); Ketones Trace mg/dL (Negative); Leukocyte Esterase Trace (Negative); Nitrite Negative (Negative); Specific Gravity >= 1.030 (1.005-1.025); Urobilinogen 0.2 EU/dL (Up TO 0.2); pH 6.5 (5-8)
[2018-09-22 13:43] LABS: Bacteria Few HPF (Negative); C & S Indicated? No/Sq. Contamination; Casts 0-2 Fine Granular LPF (Negative); Crystals Negative HPF (Negative); Epithelial Cells Many HPF (Negative); Mucus Heavy (Negative)
[2018-09-23 11:40] LABS: Hepatitis A Antibody IgM Negative (NEGAT); Hepatitis B Core Antibody Negative (NEGAT); Hepatitis B surface Ag Negative (NEGAT); Hepatitis C Ab w Rflx HCV PCR Negative (NEGAT)
== END 2018-09-22 11:11 ==
LOC: NCHCN 10:51
PROVIDERS: PCP Nurse Practitioner Family; Visit Provider Nurse Practitioner Family
DX: R79.89 Other specified abnormal findings of blood chemistry (principal)
CPT/HCPCS: 80076; 86704; 86709; 86803; 87340; 81003; 81015

== ENCOUNTER 2018-10-14 12:41 | Outpatient (CLI) | payer MEDICAID, SELFPAY ==
[2018-10-14 14:13] LABS: ALT 102 U/L (12-78); AST 39 U/L (15-37); Albumin 3.5 g/dL (3.4-5.0); Alkaline Phosphatase 129 U/L (46-116); Anion Gap 6.5 mmol/L (3-11); BUN 12 mg/dL (7-18); Bilirubin, Total 0.2 mg/dL (0.2-1.0); CO2 29.5 mmol/L (21.0-32.0); CREATININE 0.55 mg/dL (0.55-1.02); Calcium 9.1 mg/dL (8.5-10.1); Chloride 104 mmol/L (98-107); Glucose 98 mg/dL (70-100); Sodium 140 mmol/L (136-145); Total Protein 6.6 g/dL (6.4-8.2)
== END 2018-10-14 13:01 ==
PROVIDERS: PCP Nurse Practitioner Family; Visit Provider Nurse Practitioner Family
DX: R79.89 Other specified abnormal findings of blood chemistry (principal)
CPT/HCPCS: 36415; 80053; 81003

== ENCOUNTER 2018-10-18 09:26 | Outpatient (CLI) | payer MEDICAID, SELFPAY ==
[2018-10-18 10:03] LABS: Abs Immature Grans 0.02 k/cumm (0.0-0.09); Absolute Basophil Count 0.02 k/cumm (0.0-0.2); Absolute Lymphocyte Count 2.22 k/cumm (1.2-3.4); Absolute Monocyte Count 0.43 k/cumm (0.11-0.7); Basophils % 0.3; HCT 38.6 % (36.0-46.0); HGB 12.9 g/dL (12.0-15.5); Immature Grans % 0.3; Mean Corp. HGB Concentration 33.4 g/dL (32.0-36.0); Mean Corpuscular Hemoglobin 29.1 pg (27.0-33.0); Mean Corpuscular Volume 87.1 fL (80-95); Mean Platelet Volume 9.8 fL (8.0-11.0); Monocytes % 5.8; Neutrophils % 63.6; Platelet Count 290 x1000/uL (130-400); RBC 4.43 m/cumm (4.00-5.20); RBC Distribution Width 13.9 % (11.7-14.6); White Blood Cell Count 7.39 k/cumm (4.4-10.8)
== END 2018-10-18 09:46 ==
PROVIDERS: PCP Nurse Practitioner Family; Visit Provider Nurse Practitioner Psychiatric/Mental Health
DX: F20.9 Schizophrenia, unspecified (principal); Z79.899 Other long term (current) drug therapy
CPT/HCPCS: 36415; 85025

== ENCOUNTER 2018-11-02 10:22 | Outpatient (CLI) | payer MEDICAID, SELFPAY ==
[2018-11-02 10:45] LABS: Abs Immature Grans 0.01 k/cumm (0.0-0.09); Absolute Basophil Count 0.03 k/cumm (0.0-0.2); Absolute Lymphocyte Count 2.03 k/cumm (1.2-3.4); Absolute Neutrophil Count 3.15 k/cumm (1.2-6.7); Basophils % 0.5; HCT 37.3 % (36.0-46.0); HGB 12.6 g/dL (12.0-15.5); Immature Grans % 0.2; Lymphocytes % 36.1; Mean Corp. HGB Concentration 33.8 g/dL (32.0-36.0); Mean Corpuscular Hemoglobin 29.9 pg (27.0-33.0); Mean Corpuscular Volume 88.6 fL (80-95); Mean Platelet Volume 9.6 fL (8.0-11.0); Monocytes % 7.1; Neutrophils % 56.1; Platelet Count 348 x1000/uL (130-400); RBC 4.21 m/cumm (4.00-5.20); White Blood Cell Count 5.62 k/cumm (4.4-10.8)
[2018-11-02 10:53] LABS: Ammonia < 10 umol/L (11-32)
[2018-11-02 11:53] LABS: ALT 85 U/L (12-78); AST 20 U/L (15-37); Albumin 3.8 g/dL (3.4-5.0); Alkaline Phosphatase 128 U/L (46-116); Anion Gap 6.3 mmol/L (3-11); BUN 14 mg/dL (7-18); Bilirubin, Total 0.3 mg/dL (0.2-1.0); CO2 29.7 mmol/L (21.0-32.0); CREATININE 0.48 mg/dL (0.55-1.02); Calcium 9.1 mg/dL (8.5-10.1); Chloride 105 mmol/L (98-107); Glucose 94 mg/dL (70-100); Potassium 4.1 mmol/L (3.5-5.1); Sodium 141 mmol/L (136-145); TSH 0.49 uIU/mL (0.358-3.74)
[2018-11-04 09:10] LABS: Clozapine 829 ng/mL (>350); Clozapine+Norclozapine Total 1316 ng/mL (>450); Norclozapine 487 ng/mL
== END 2018-11-02 10:42 ==
PROVIDERS: PCP Nurse Practitioner Family; Visit Provider Nurse Practitioner Psychiatric/Mental Health
DX: F20.9 Schizophrenia, unspecified (principal); Z51.81 Encounter for therapeutic drug level monitoring; Z79.899 Other long term (current) drug therapy
CPT/HCPCS: 36415; 80053; 80159; 82140; 84443; 85025

== ENCOUNTER 2018-12-08 09:37 | Outpatient (CLI) | payer MEDICAID, SELFPAY ==
[2018-12-08 10:35] LABS: Abs Immature Grans 0.01 k/cumm (0.0-0.09); Absolute Basophil Count 0.01 k/cumm (0.0-0.2); Absolute Lymphocyte Count 1.62 k/cumm (1.2-3.4); Absolute Monocyte Count 0.59 k/cumm (0.11-0.7); Absolute Neutrophil Count 4.06 k/cumm (1.2-6.7); Basophils % 0.2; HCT 37.2 % (36.0-46.0); HGB 12.3 g/dL (12.0-15.5); Immature Grans % 0.2; Lymphocytes % 25.8; Mean Corp. HGB Concentration 33.1 g/dL (32.0-36.0); Mean Corpuscular Hemoglobin 29.3 pg (27.0-33.0); Mean Corpuscular Volume 88.6 fL (80-95); Mean Platelet Volume 10.1 fL (8.0-11.0); Monocytes % 9.4; Neutrophils % 64.4; Platelet Count 373 x1000/uL (130-400); RBC Distribution Width 14.2 % (11.7-14.6); White Blood Cell Count 6.29 k/cumm (4.4-10.8)
== END 2018-12-08 09:57 ==
PROVIDERS: PCP Nurse Practitioner Family; Visit Provider Nurse Practitioner Psychiatric/Mental Health
DX: F20.9 Schizophrenia, unspecified (principal); Z79.899 Other long term (current) drug therapy
CPT/HCPCS: 36415; 85025

== ENCOUNTER 2018-12-26 13:06 | Outpatient (CLI) | payer MEDICAID, SELFPAY ==
[2018-12-26 13:38] LABS: Abs Immature Grans 0.01 k/cumm (0.0-0.09); Absolute Basophil Count 0.01 k/cumm (0.0-0.2); Absolute Monocyte Count 0.44 k/cumm (0.11-0.7); Absolute Neutrophil Count 5.08 k/cumm (1.2-6.7); Basophils % 0.1; HCT 38.7 % (36.0-46.0); Immature Grans % 0.1; Lymphocytes % 31.9; Mean Corp. HGB Concentration 33.6 g/dL (32.0-36.0); Mean Corpuscular Hemoglobin 29.8 pg (27.0-33.0); Mean Corpuscular Volume 88.8 fL (80-95); Mean Platelet Volume 9.7 fL (8.0-11.0); Monocytes % 5.4; Neutrophils % 62.5; Platelet Count 370 x1000/uL (130-400); RBC 4.36 m/cumm (4.00-5.20); RBC Distribution Width 13.7 % (11.7-14.6); White Blood Cell Count 8.14 k/cumm (4.4-10.8)
== END 2018-12-26 13:26 ==
PROVIDERS: PCP Nurse Practitioner Family; Visit Provider Nurse Practitioner Psychiatric/Mental Health
DX: F20.9 Schizophrenia, unspecified (principal); Z79.899 Other long term (current) drug therapy
CPT/HCPCS: 36415; 85025

== ENCOUNTER 2019-01-24 11:01 | Outpatient (REF) | payer MEDICAID, SELFPAY ==
[2019-01-24 13:26] LABS: ALT 105 U/L (12-78); AST 40 U/L (15-37); Alkaline Phosphatase 132 U/L (46-116); BUN 13 mg/dL (7-18); Bilirubin, Total 0.2 mg/dL (0.2-1.0); CREATININE 0.53 mg/dL (0.55-1.02); Calcium 9.1 mg/dL (8.5-10.1); Chloride 104 mmol/L (98-107); Glucose 115 mg/dL (70-100); Potassium 3.5 mmol/L (3.5-5.1); Sodium 142 mmol/L (136-145); Total Protein 7.4 g/dL (6.4-8.2)
== END 2019-01-24 11:21 ==
LOC: NCHCN 11:01
PROVIDERS: PCP Nurse Practitioner Family; Visit Provider Nurse Practitioner Family
DX: R79.89 Other specified abnormal findings of blood chemistry (principal)
CPT/HCPCS: 80053

== ENCOUNTER 2019-02-08 13:04 | Outpatient (CLI) | payer MEDICAID, SELFPAY ==
[2019-02-08 13:31] LABS: Abs Immature Grans 0.01 k/cumm (0.0-0.09); Absolute Basophil Count 0.02 k/cumm (0.0-0.2); Absolute Lymphocyte Count 2.08 k/cumm (1.2-3.4); Absolute Monocyte Count 0.47 k/cumm (0.11-0.7); Absolute Neutrophil Count 4.49 k/cumm (1.2-6.7); Basophils % 0.3; HCT 37.3 % (36.0-46.0); HGB 12.1 g/dL (12.0-15.5); Immature Grans % 0.1; Lymphocytes % 29.4; Mean Corp. HGB Concentration 32.4 g/dL (32.0-36.0); Mean Corpuscular Hemoglobin 28.9 pg (27.0-33.0); Mean Corpuscular Volume 89.2 fL (80-95); Mean Platelet Volume 9.8 fL (8.0-11.0); Monocytes % 6.6; Neutrophils % 63.6; Platelet Count 378 x1000/uL (130-400); RBC 4.18 m/cumm (4.00-5.20); RBC Distribution Width 13.7 % (11.7-14.6); White Blood Cell Count 7.07 k/cumm (4.4-10.8)
== END 2019-02-08 13:24 ==
PROVIDERS: PCP Nurse Practitioner Family; Visit Provider Nurse Practitioner Psychiatric/Mental Health
DX: F20.9 Schizophrenia, unspecified (principal); Z79.899 Other long term (current) drug therapy
CPT/HCPCS: 36415; 85025

== ENCOUNTER 2023-12-16 14:04 | Outpatient (CLI) | payer MEDICAID, SELFPAY ==
[2023-12-16 11:42] LABS: Abs Immature Grans 0.02 10^3/uL (0.0-0.06); Absolute Basophil Count 0.02 10^3/uL (0.0-0.2); Absolute Lymphocyte Count 2.05 10^3/uL (1.2-3.4); Absolute Monocyte Count 0.35 10^3/uL (0.1-0.8); Absolute Neutrophil Count 4.16 10^3/uL (1.2-6.7); Basophils % 0.3; HCT 40.2 % (36.0-46.0); Immature Grans % 0.3; Lymphocytes % 31.1; MCH 29.1 pg (27.0-33.0); MCHC 32.3 % (32.0-36.0); MCV 90 fL (80-95); MPV 9.3 fL (8.0-11.0); Monocytes % 5.3; Platelet Count 298 10^3/uL (130-400); RBC 4.46 10^6/uL (3.93-5.22); RDW 13.5 % (11.7-14.6); RDW-SD 44.8 fL
== END 2023-12-16 14:05 | disposition home or self-care (01) ==
LOC: LBO 14:06
PROVIDERS: Visit Provider Nurse Practitioner Family
DX: Z79.899 Other long term (current) drug therapy (principal); F20.9 Schizophrenia, unspecified
CPT/HCPCS: 36415; 85025

== ENCOUNTER 2024-01-16 18:54 | Emergency (ER) | payer MEDICAID, SELFPAY ==
--- NOTE | 2024-01-16 18:45 | RT.EKG_ITS ---
APPROVED REPORT Exam: Resting ECG Reason for Exam: confusion Patient Location: E HR:81 bpm ECG Measurements Heart Rate 81 AXIS NM 131 P 50 QRSd 96 QRS 12 QT 366 T -88 QTc 427 Conclusion Sinus rhythm 81 st depressions consistent with prior EKG
[2024-01-16 18:57] VITALS: BP 125/89; PULSE 78; RESP 14; RESP 18; TEMP 37.1; O2SAT 98
[2024-01-16 19:12] VITALS: RESP 14
[2024-01-16 19:13] LABS: Abs Immature Grans 0.01 10^3/uL (0.0-0.06); Absolute Basophil Count 0.04 10^3/uL (0.0-0.2); Absolute Lymphocyte Count 2.73 10^3/uL (1.2-3.4); Absolute Monocyte Count 0.62 10^3/uL (0.1-0.8); Absolute Neutrophil Count 4.98 10^3/uL (1.2-6.7); Basophils % 0.5 %; HCT 38.6 % (36.0-46.0); Immature Grans % 0.1 %; Lymphocytes % 32.6 %; MCHC 33.7 % (32.0-36.0); MCV 89 fL (80-95); MPV 9.2 fL (8.0-11.0); Monocytes % 7.4 %; Neutrophils % 59.4 %; Platelet Count 362 10^3/uL (130-400); RBC 4.34 10^6/uL (3.93-5.22); RDW-SD 42.4 fL; WBC 8.38 10^3/uL (4.4-10.8)
--- NOTE | 2024-01-16 19:30 | DI.CT_ITS ---
Exam(s) CT HEAD WO EXAM: CT HEAD WO CLINICAL HISTORY: confused. TECHNIQUE: Imaging Protocol: Axial computed tomography images with coronal and sagittal reformatted images were created and reviewed COMPARISON: CT HEAD WITHOUT CONTRAST from 11/14/2015 FINDINGS: There are no skull fractures. There is no fluid in the visualized paranasal sinuses. There is no evidence of intracranial hemorrhage, mass effect, or shift of midline structures. There are no extra-axial fluid collections. The ventricles are not enlarged or shifted and there is no blo od within the ventricular system nor within the basal cisterns. IMPRESSION: No acute intracranial findings on this noninfused CT scan of the brain. RADIATION DOSE DELIVERED: 744.29mGy.cm Total DLP DATA REPOSITORY: All CT scans at this facility are submitted to the National Radiology Data Registry (NRDR) Dose Index Registry (DIR) with the [employer] (ACR). RADIATION OPTIMIZATION: All CT scans at this facility use at least one of these dose optimization te chniques: automated exposure control; mA and/or kV adjustment per patient size (includes targeted exa ms where dose is matched to clinical indication); or iterative reconstruction.
[2024-01-16 19:35] LABS: Ammonia 18 umol/L (11-32)
[2024-01-16] MEDS: Midazolam 2 MG/2 ML VIAL 1 MG IVP (19:42)
[2024-01-16 19:52] LABS: Magnesium 1.8 mg/dL (1.8-2.4)
[2024-01-16 19:56] LABS: ALT 135 U/L (14-59); AST 30 U/L (15-37); Albumin 4.2 g/dL (3.4-5.0); Alkaline Phosphatase 140 U/L (46-116); Anion Gap 9.8 mmol/L (3-11); BUN 14 mg/dL (7-18); Bilirubin, Total 0.5 mg/dL (0.2-1.0); CO2 28.2 mmol/L (21.0-32.0); CREATININE 0.6 mg/dL (0.55-1.02); Calcium 9.5 mg/dL (8.5-10.1); Chloride 103 mmol/L (98-107); Estimated GFR 105.94 (mL/min/1.73m2); Glucose 101 mg/dL (74-106); Sodium 141 mmol/L (136-145); Total Protein 7.7 g/dL (6.4-8.2)
[2024-01-16] MEDS: Nicotine 21 MG/24 HR PATCH TD (20:02)
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
[2024-01-16 20:06] LABS: ETHANOL BLOOD < 3.0 mg/dL (<10); TSH (W/Ref FT4) 0.41 uIU/mL (0.36-3.74)
[2024-01-16 20:21] LABS: Bilirubin Negative (Negative); Blood Small (Negative); Clarity Sl Cloudy (Clear); Glucose Negative (Negative); Ketones Negative (Negative); Leukocyte Esterase Negative (Negative); Nitrite Negative (Negative); Specific Gravity >= 1.030 (1.005-1.025); Urobilinogen 0.2 mg/dL (Up to 0.2); pH 5.5 (5-8)
[2024-01-16 20:27] LABS: Bacteria Few HPF (Negative); Epithelial Cells Few HPF (Negative)
[2024-01-16 20:28] LABS: C & S Indicated? No; Casts Negative LPF (Negative); Crystals Negative HPF (Negative); Mucus Moderate (Negative)
[2024-01-16 20:34] LABS: *AMPHETAMINES SCREEN URINE Negative (Negative); *BARBITURATES SCREEN URINE Negative (Negative); *BENZODIAZEPINES SCREEN URINE Negative (Negative); Cannabinoids THC Negative (Negative); Cocaine Screen,Urine Negative (Negative); METHADONE URINE SCREEN Negative (Negative); OPIATES URINE SCREEN Negative (Negative)
[2024-01-16 20:38] LABS: Tricyclic Antidepressants Negative (Negative)
--- NOTE | 2024-01-16 21:00 | DI.VRAD_ITS ---
PROCEDURE INFORMATION: Exam: CT Head Without Contrast Exam date and time: 01/16/2024 8:09 PM Age: 53 years old Clinical indication: Altered mental status/memory loss; Confusion or disorientation; Patient HX: Confused TECHNIQUE: Imaging protocol: Computed tomography of the head without contrast. Radiation optimization: All CT scans at this facility use at least one of these dose optimization techniques: automated exposure control; mA and/or kV adjustment per patient size (includes targeted exams where dose is matched to clinical indication); or iterative reconstruction. COMPARISON: No relevant prior studies available. FINDINGS: Brain: Normal volume for age. No acute intracranial hemorrhage. No evidence of acute large vascular territory infarct. No edema. No midline shift or herniation. Cerebral ventricles: No ventriculomegaly. Paranasal sinuses: Imaged paranasal sinuses appropriately aerated without air-fluid levels. Mastoid air cells: No mastoid effusion. Bones: Unremarkable. No acute fracture. Soft tissues: No focal soft tissue abnormality. IMPRESSION: No acute intracranial finding. Dictated and Authenticated by: Asad Croft MD. Ordering:DL Martins MD
[2024-01-16 22:42] VITALS: BP 124/86; PULSE 72; RESP 12; TEMP 37; O2SAT 98
--- NOTE | 2024-01-17 12:26 | NUR.NOTE ---
Accessed chart; [facility] [place] Med Rec called asking about pt to do this. Told them that she was discharged. Nursing Note:
[2024-01-19 20:28] LABS: Clozapine <25 ng/mL (350-600); Clozapine+Norclozapine Total Unable to calculate ng/mL; Norclozapine <25 ng/mL
== END 2024-01-16 23:00 | disposition home or self-care (01) ==
PROVIDERS: Emergency Provider Physician Assistant
DX: F22 Delusional disorders (principal); F20.9 Schizophrenia, unspecified; F17.210 Nicotine dependence, cigarettes, uncomplicated
CPT/HCPCS: 80053; 80307; 93005; 96374; 99284; 70450; 80159; 80320; 81003; 81015; 82140; 83735; 84443; 85025; 93010; 99283; J2250

== ENCOUNTER 2024-02-21 19:36 | Outpatient (CLI) | payer MEDICAID, SELFPAY ==
[2024-02-21 14:44] LABS: Abs Immature Grans 0.01 10^3/uL (0.0-0.06); Absolute Basophil Count 0.03 10^3/uL (0.0-0.2); Absolute Monocyte Count 0.35 10^3/uL (0.1-0.8); Absolute Neutrophil Count 3.94 10^3/uL (1.2-6.7); Basophils % 0.5 %; HCT 38.6 % (36.0-46.0); HGB 12.7 g/dL (11.2-15.7); Immature Grans % 0.2 %; Lymphocytes % 30.5 %; MCH 29.3 pg (27.0-33.0); MCHC 32.9 % (32.0-36.0); MCV 89 fL (80-95); MPV 9.5 fL (8.0-11.0); Monocytes % 5.6 %; Neutrophils % 63.2 %; Platelet Count 344 10^3/uL (130-400); RBC 4.34 10^6/uL (3.93-5.22); RDW-SD 41.9 fL; WBC 6.23 10^3/uL (4.4-10.8)
== END 2024-02-21 19:37 | disposition home or self-care (01) ==
LOC: LBO 19:37
PROVIDERS: Visit Provider Nurse Practitioner Psychiatric/Mental Health
DX: Z79.899 Other long term (current) drug therapy (principal); F20.9 Schizophrenia, unspecified; F19.99 Other psychoactive substance use, unspecified with unspecified psychoactive substance-induced disorder
CPT/HCPCS: 36415; 85025

== ENCOUNTER 2024-03-23 02:41 | Outpatient (CLI) | payer MEDICAID, SELFPAY ==
[2024-03-23 15:44] LABS: Abs Immature Grans 0.02 10^3/uL (0.0-0.06); Absolute Basophil Count 0.02 10^3/uL (0.0-0.2); Absolute Lymphocyte Count 2.23 10^3/uL (1.2-3.4); Absolute Monocyte Count 0.49 10^3/uL (0.1-0.8); Absolute Neutrophil Count 3.47 10^3/uL (1.2-6.7); Basophils % 0.3 %; HGB 12.6 g/dL (11.2-15.7); Immature Grans % 0.3 %; Lymphocytes % 35.8 %; MCH 29.8 pg (27.0-33.0); MCHC 34.1 % (32.0-36.0); MCV 88 fL (80-95); MPV 9.3 fL (8.0-11.0); Monocytes % 7.9 %; Neutrophils % 55.7 %; Platelet Count 353 10^3/uL (130-400); RBC 4.23 10^6/uL (3.93-5.22); RDW 12.8 % (11.7-14.6); WBC 6.23 10^3/uL (4.4-10.8)
== END 2024-03-23 02:42 | disposition home or self-care (01) ==
PROVIDERS: Visit Provider Nurse Practitioner Psychiatric/Mental Health
DX: Z79.899 Other long term (current) drug therapy (principal); F20.9 Schizophrenia, unspecified; F19.99 Other psychoactive substance use, unspecified with unspecified psychoactive substance-induced disorder
CPT/HCPCS: 36415; 85025

== ENCOUNTER 2024-04-17 15:23 | Outpatient (CLI) | payer MEDICAID, SELFPAY ==
[2024-04-17 11:02] LABS: Abs Immature Grans 0.02 10^3/uL (0.0-0.06); Absolute Lymphocyte Count 2.03 10^3/uL (1.2-3.4); Absolute Monocyte Count 0.44 10^3/uL (0.1-0.8); Absolute Neutrophil Count 4.73 10^3/uL (1.2-6.7); HGB 12.4 g/dL (11.2-15.7); Immature Grans % 0.3 %; Lymphocytes % 28.1 %; MCH 29.6 pg (27.0-33.0); MCHC 32.6 % (32.0-36.0); MCV 91 fL (80-95); MPV 9.1 fL (8.0-11.0); Monocytes % 6.1 %; Neutrophils % 65.5 %; Platelet Count 318 10^3/uL (130-400); RBC 4.19 10^6/uL (3.93-5.22); RDW 13.2 % (11.7-14.6); WBC 7.22 10^3/uL (4.4-10.8)
== END 2024-04-17 15:24 | disposition home or self-care (01) ==
LOC: LBO 04-26 15:23
PROVIDERS: Visit Provider Nurse Practitioner Psychiatric/Mental Health
DX: Z79.899 Other long term (current) drug therapy (principal); F20.9 Schizophrenia, unspecified; F19.99 Other psychoactive substance use, unspecified with unspecified psychoactive substance-induced disorder
CPT/HCPCS: 36415; 85025

== ENCOUNTER 2024-05-11 15:23 | Outpatient (CLI) | payer MEDICAID, SELFPAY ==
[2024-05-11 15:28] LABS: Abs Immature Grans 0.03 10^3/uL (0.0-0.06); Absolute Basophil Count 0.01 10^3/uL (0.0-0.2); Absolute Lymphocyte Count 2.31 10^3/uL (1.2-3.4); Absolute Monocyte Count 0.42 10^3/uL (0.1-0.8); Absolute Neutrophil Count 4.76 10^3/uL (1.2-6.7); Basophils % 0.1 %; HCT 39.3 % (36.0-46.0); HGB 12.7 g/dL (11.2-15.7); Immature Grans % 0.4 %; Lymphocytes % 30.7 %; MCH 29.1 pg (27.0-33.0); MCHC 32.3 % (32.0-36.0); MCV 90 fL (80-95); MPV 9.2 fL (8.0-11.0); Monocytes % 5.6 %; Neutrophils % 63.2 %; Platelet Count 342 10^3/uL (130-400); RBC 4.36 10^6/uL (3.93-5.22); RDW 12.8 % (11.7-14.6); RDW-SD 42.7 fL; WBC 7.53 10^3/uL (4.4-10.8)
== END 2024-05-11 15:24 | disposition home or self-care (01) ==
LOC: LBO 15:30
PROVIDERS: Visit Provider Nurse Practitioner Psychiatric/Mental Health
DX: Z79.899 Other long term (current) drug therapy (principal); F20.9 Schizophrenia, unspecified; F19.99 Other psychoactive substance use, unspecified with unspecified psychoactive substance-induced disorder
CPT/HCPCS: 36415; 85025

== ENCOUNTER 2024-06-08 03:08 | Outpatient (CLI) | payer MEDICAID, SELFPAY ==
[2024-06-08 15:33] LABS: Abs Immature Grans 0.02 10^3/uL (0.0-0.06); Absolute Basophil Count 0.02 10^3/uL (0.0-0.2); Absolute Lymphocyte Count 2.32 10^3/uL (1.2-3.4); Absolute Monocyte Count 0.55 10^3/uL (0.1-0.8); Absolute Neutrophil Count 3.34 10^3/uL (1.2-6.7); Basophils % 0.3 %; HCT 39.5 % (36.0-46.0); HGB 12.6 g/dL (11.2-15.7); Immature Grans % 0.3 %; Lymphocytes % 37.1 %; MCHC 31.9 % (32.0-36.0); MCV 91 fL (80-95); MPV 9.4 fL (8.0-11.0); Monocytes % 8.8 %; Neutrophils % 53.5 %; Platelet Count 335 10^3/uL (130-400); RBC 4.34 10^6/uL (3.93-5.22); RDW 12.9 % (11.7-14.6); RDW-SD 43.1 fL; WBC 6.25 10^3/uL (4.4-10.8)
== END 2024-06-08 03:09 | disposition home or self-care (01) ==
LOC: LBO 03:08
PROVIDERS: Visit Provider Nurse Practitioner Psychiatric/Mental Health
DX: Z79.899 Other long term (current) drug therapy (principal); F20.9 Schizophrenia, unspecified; F19.99 Other psychoactive substance use, unspecified with unspecified psychoactive substance-induced disorder
CPT/HCPCS: 36415; 85025

== ENCOUNTER 2024-07-06 03:44 | Outpatient (CLI) | payer MEDICAID, SELFPAY ==
[2024-07-06 14:56] LABS: Abs Immature Grans 0.02 10^3/uL (0.0-0.06); Absolute Basophil Count 0.02 10^3/uL (0.0-0.2); Absolute Neutrophil Count 5.34 10^3/uL (1.2-6.7); Basophils % 0.2 %; HCT 39.5 % (36.0-46.0); Immature Grans % 0.2 %; MCH 29.2 pg (27.0-33.0); MCHC 32.9 % (32.0-36.0); MCV 89 fL (80-95); Neutrophils % 64.6 %; Platelet Count 313 10^3/uL (130-400); RBC 4.45 10^6/uL (3.93-5.22); RDW 12.8 % (11.7-14.6); RDW-SD 41.9 fL; WBC 8.28 10^3/uL (4.4-10.8)
== END 2024-07-06 03:45 | disposition home or self-care (01) ==
PROVIDERS: Visit Provider Nurse Practitioner Psychiatric/Mental Health
DX: Z79.899 Other long term (current) drug therapy (principal); F19.99 Other psychoactive substance use, unspecified with unspecified psychoactive substance-induced disorder
CPT/HCPCS: 36415; 85025

== ENCOUNTER 2024-08-01 15:36 | Outpatient (CLI) | payer MEDICAID, SELFPAY ==
[2024-08-01 15:25] LABS: Abs Immature Grans 0.03 10^3/uL (0.0-0.06); Absolute Basophil Count 0.03 10^3/uL (0.0-0.2); Absolute Lymphocyte Count 2.46 10^3/uL (1.2-3.4); Absolute Neutrophil Count 4.49 10^3/uL (1.2-6.7); Basophils % 0.4 %; HCT 40.8 % (36.0-46.0); HGB 13.3 g/dL (11.2-15.7); Immature Grans % 0.4 %; Lymphocytes % 32.8 %; MCH 29.4 pg (27.0-33.0); MCHC 32.6 % (32.0-36.0); MCV 90 fL (80-95); MPV 9.2 fL (8.0-11.0); Monocytes % 6.7 %; Neutrophils % 59.7 %; Platelet Count 377 10^3/uL (130-400); RBC 4.53 10^6/uL (3.93-5.22); RDW 12.8 % (11.7-14.6); RDW-SD 42.3 fL; WBC 7.51 10^3/uL (4.4-10.8)
== END 2024-08-01 15:37 | disposition home or self-care (01) ==
LOC: LBO 15:38
PROVIDERS: Visit Provider Nurse Practitioner Psychiatric/Mental Health
DX: Z79.899 Other long term (current) drug therapy (principal); F20.9 Schizophrenia, unspecified; F19.99 Other psychoactive substance use, unspecified with unspecified psychoactive substance-induced disorder
CPT/HCPCS: 36415; 85025

== ENCOUNTER 2024-09-01 14:22 | Outpatient (CLI) | payer MEDICAID, SELFPAY ==
[2024-09-01 10:34] LABS: Abs Immature Grans 0.01 10^3/uL (0.0-0.06); Absolute Basophil Count 0.02 10^3/uL (0.0-0.2); Absolute Eosinophil Count 0.01 10^3/uL (0.0-0.7); Absolute Lymphocyte Count 2.34 10^3/uL (1.2-3.4); Absolute Monocyte Count 0.48 10^3/uL (0.1-0.8); Absolute Neutrophil Count 4.97 10^3/uL (1.2-6.7); Basophils % 0.3 %; Eosinophils % 0.1 %; HCT 41.2 % (36.0-46.0); HGB 13.7 g/dL (11.2-15.7); Immature Grans % 0.1 %; Lymphocytes % 29.9 %; MCHC 33.3 % (32.0-36.0); MCV 87 fL (80-95); MPV 9.9 fL (8.0-11.0); Monocytes % 6.1 %; Neutrophils % 63.5 %; Platelet Count 371 10^3/uL (130-400); RBC 4.73 10^6/uL (3.93-5.22); RDW-SD 41.6 fL; WBC 7.83 10^3/uL (4.4-10.8)
== END 2024-09-01 14:23 | disposition home or self-care (01) ==
LOC: LBO 14:23
PROVIDERS: PCP Family Medicine; Visit Provider Nurse Practitioner Psychiatric/Mental Health
DX: Z79.899 Other long term (current) drug therapy (principal); F20.9 Schizophrenia, unspecified; F19.99 Other psychoactive substance use, unspecified with unspecified psychoactive substance-induced disorder
CPT/HCPCS: 36415; 85025

== ENCOUNTER 2024-10-02 14:11 | Outpatient (CLI) | payer MEDICAID, SELFPAY ==
[2024-10-02 09:44] LABS: Abs Immature Grans 0.03 10^3/uL (0.0-0.06); Absolute Basophil Count 0.04 10^3/uL (0.0-0.2); Absolute Lymphocyte Count 1.61 10^3/uL (1.2-3.4); Absolute Monocyte Count 0.41 10^3/uL (0.1-0.8); Absolute Neutrophil Count 8.62 10^3/uL (1.2-6.7); Basophils % 0.4 %; HCT 39.4 % (36.0-46.0); HGB 12.8 g/dL (11.2-15.7); Immature Grans % 0.3 %; MCHC 32.5 % (32.0-36.0); MCV 89 fL (80-95); MPV 9.6 fL (8.0-11.0); Monocytes % 3.8 %; Neutrophils % 80.5 %; Platelet Count 349 10^3/uL (130-400); RBC 4.42 10^6/uL (3.93-5.22); RDW 12.8 % (11.7-14.6); RDW-SD 42.4 fL; WBC 10.71 10^3/uL (4.4-10.8)
== END 2024-10-02 14:12 | disposition home or self-care (01) ==
LOC: LBO 14:11
PROVIDERS: PCP Family Medicine; Visit Provider Nurse Practitioner Psychiatric/Mental Health
DX: Z79.899 Other long term (current) drug therapy (principal); F20.9 Schizophrenia, unspecified; F19.99 Other psychoactive substance use, unspecified with unspecified psychoactive substance-induced disorder
CPT/HCPCS: 36415; 85025

== ENCOUNTER 2024-10-26 15:43 | Outpatient (CLI) | payer MEDICAID, SELFPAY ==
[2024-10-26 15:44] LABS: Abs Immature Grans 0.04 10^3/uL (0.0-0.06); Absolute Basophil Count 0.03 10^3/uL (0.0-0.2); Absolute Lymphocyte Count 2.39 10^3/uL (1.2-3.4); Absolute Monocyte Count 0.54 10^3/uL (0.1-0.8); Absolute Neutrophil Count 4.17 10^3/uL (1.2-6.7); Basophils % 0.4 %; HCT 37.1 % (36.0-46.0); HGB 12.1 g/dL (11.2-15.7); Immature Grans % 0.6 %; Lymphocytes % 33.3 %; MCH 28.9 pg (27.0-33.0); MCHC 32.6 % (32.0-36.0); MCV 89 fL (80-95); MPV 9.3 fL (8.0-11.0); Monocytes % 7.5 %; Neutrophils % 58.2 %; Platelet Count 333 10^3/uL (130-400); RBC 4.19 10^6/uL (3.93-5.22); RDW 12.9 % (11.7-14.6); RDW-SD 41.7 fL; WBC 7.17 10^3/uL (4.4-10.8)
== END 2024-10-26 15:44 | disposition home or self-care (01) ==
LOC: LBO 15:43
PROVIDERS: PCP Family Medicine; Visit Provider Nurse Practitioner Psychiatric/Mental Health
DX: Z79.899 Other long term (current) drug therapy (principal); F19.99 Other psychoactive substance use, unspecified with unspecified psychoactive substance-induced disorder
CPT/HCPCS: 36415; 85025